=== PATIENT | female | born 1980 | race Caucasian/White ===

== ENCOUNTER 2018-09-28 16:04 | Emergency (ER) | payer OTHER ==
[2018-09-28 16:12] VITALS: BP 127/73
[2018-09-28] MEDS ORDERED: HEPATITIS B VIRUS VACCINE-PF 0.5 ML VIAL IM ONE (16:21)
--- NOTE | 2018-09-28 16:25 | ER Document Report ---
ED General - General Chief Complaint: Needle Stick Exposure Stated Complaint: NEEDLE STICK Time Seen by Provider: 09/28/18 16:17 Mode of Arrival: Ambulatory Information source: Patient Notes: Chief complaint: Post needle exposure immunoglobulin History of complain:( obtained from----patient) presents today for the above. Complete blood work and everything done at the [facility] only thing they did not have the immunoglobulin therefore she was sent over here Onset: Not applicable Duration: 5 days Severity: None Quality: None none Context: None Exacerbating factor and relieving factors: None REVIEW OF SYSTEMS: CONSTITUTIONAL : Denies fever, chills, or sweats. Denies recent illness. EENT: Denies eye, ear, throat, or mouth pain or symptoms. Denies nasal or sinus congestion or discharge. Denies throat, tongue, or mouth swelling or difficulty swallowing. CARDIOVASCULAR: Denies chest pain. Denies palpitations or racing or irregular heart beat. Denies ankle edema. RESPIRATORY: Denies cough, cold, or chest congestion. Denies shortness of breath, difficulty breathing, or wheezing. GASTROINTESTINAL: Denies distention. Denies nausea, vomiting, or diarrhea. Denies blood in vomitus, stools, or per rectum. Denies black, tarry stools. Denies constipation. GENITOURINARY: Denies difficulty urinating, painful urination, burning, frequency, blood in urine, or discharge. FEMALE GENITOURINARY: Denies vaginal bleeding, heavy or abnormal periods, irregular periods. Denies vaginal discharge or odor. MUSCULOSKELETAL: Denies back or neck pain or stiffness. Denies joint pain or swelling. SKIN: Denies rash, lesions or sores. HEMATOLOGIC : Denies easy bruising or bleeding. LYMPHATIC: Denies swollen, enlarged glands. NEUROLOGICAL: Denies confusion or altered mental status. Denies passing out or loss of consciousness. Denies dizziness or lightheadedness. Denies headache. Denies weakness or paralysis or loss of use of either side. Denies problems with gait or speech. Denies sensory loss, numbness, or tingling. Denies seizures. PSYCHIATRIC: Denies anxiety or stress. Denies depression, suicidal ideation, or homicidal ideation. ALL OTHER SYSTEMS REVIEWED AND NEGATIVE. PHYSICAL EXAMINATION: GENERAL: Well-appearing, well-nourished and in no acute distress. Dictation was performed using [employer] recognition software - HPI Notes: Dictated - Related Data Allergies/Adverse Reactions: No Known Allergies Allergy (Unverified 09/28/18 16:56) Past Medical History - General Information source: Patient - Social History Smoking Status: Never Smoker Chew tobacco use (# tins/day): No Frequency of alcohol use: None Drug Abuse: None Lives with: Family Family History: Reviewed & Not Pertinent Patient has suicidal ideation: No Patient has homicidal ideation: No Renal/ Medical History: Denies: Hx Peritoneal Dialysis Review of Systems - Review of Systems Notes: Dictated Physical Exam - Vital signs Vitals: Temp Pulse Resp BP Pulse Ox 98.2 F 75 18 127/73 H 97 09/28/18 16:11 09/28/18 16:11 09/28/18 16:11 09/28/18 16:11 09/28/18 16:11 - Notes Notes: Dictated Course - Vital Signs Vital signs: Temp Pulse Resp BP Pulse Ox 98.2 F 75 18 127/73 H 97 09/28/18 16:11 09/28/18 16:11 09/28/18 16:11 09/28/18 16:11 09/28/18 16:11 Discharge - Discharge Clinical Impression: Needlestick injury accident Condition: Fair Disposition: HOME, SELF-CARE Instructions: Contaminated Needle-Stick ([facility]) Referrals: HEALTH,EMPLOYEE [ACTIVE STAFF] - Follow up as needed
[2018-09-28] MEDS ORDERED: HEPATITIS B IMMUNE GLOBULIN INJ 5 ML VIAL IM ONE ×2 (16:30→17:30)
== END 2018-09-28 17:23 | disposition home or self-care (01) ==
LOC: ER 16:04
DX: T14.90XA Injury, unspecified, initial encounter (principal); W46.1XXA Contact with contaminated hypodermic needle, initial encounter; Y92.238 Other place in hospital as the place of occurrence of the external cause; Z23 Encounter for immunization; Z20.5 Contact with and (suspected) exposure to viral hepatitis
CPT/HCPCS: 90371; 90746; 96372; 99282